=== PATIENT | female | born 1990 | race Caucasian/White ===

== ENCOUNTER 2017-02-19 02:45 | Emergency (ER) | payer BC ==
[~2017-02-19] VITALS: Ht 175.3 cm; Wt 60.0 kg
[~2017-02-19 02:45] MED LIST: CIPR500T2 PO
[2017-02-19 02:47] VITALS: BP 118/72; PULSE 65; RESP 16; TEMP 97.8; O2SAT 100
[2017-02-19] MEDS ORDERED: diphenhydrAMINE HCL ELIXIR 12.5 MG/5 ML CUP PO ONE (03:00)
[2017-02-19] MEDS ORDERED: LIDOCAINE VISCOUS 2% SOLN 15 ML UDC SWISH-SWAL ONE (03:00)
--- NOTE | 2017-02-19 04:42 | PD ---
HPI Chief Complaint: Abdominal Pain Time Seen by Provider: 02:53 Travel History International Travel<30 days: No Contact w/Intl Traveler<30days: No Traveled to known affect area: No History of Present Illness HPI Patient is a 26-year-old female and she is 10 weeks she's having epigastric pain and burning that is not relieved by Tums it is not relieved by other [id number] and antacids. She had hyperemesis gravidarum the very beginning of her but now she has only a epigastric pain. Pt denies dysuria denies any frequency denies any lower abdominal pain . she took over- the-counter antiacids which did not help relieve this epigastric pain... no change in her stool. no vomiting Pain does not radiate and is a achy burning feeling PFSH Past Medical History Arthritis: No Asthma: No Autoimmune Disease: No Blood Disorders: No Anxiety: No Heart Rhythm Problems: Yes (EPISODES OF TACHYCARDIA) Cancer: No Cardiovascular Problems: Yes (FREQUENT NOSEBLEEDS) Chemotherapy: No Chest Pain: No COPD: No Cerebrovascular Accident: No GERD: No Genitourinary: No Headaches: Yes Hepatitis: No Hiatal Hernia: No Hypertension: No Immune Disorder: No Musculoskeletal: No Neurologic: No Psychiatric: No Reproductive: No Respiratory: No Migraines: Yes (CAFFEINE) Radiation Therapy: No Seizures: No Sleep Apnea: No Ulcer: No ?: Past Surgical History Abdominal Surgery: No Appendectomy: Yes Cardiac Surgery: No Cholecystectomy: Yes Genitourinary Surgery: No Gynecologic Surgery: No Pacemaker: No Thoracic Surgery: Yes (R. BREAST) Other Surgery: Yes (RIGHT BREAST RECONSTRUCTION) Social History Alcohol Use: Yes (RARELY) Tobacco Use: No Substance Use: No Allergies-Medications (Allergen,Severity, Reaction): Coded Allergies: No Known Allergies (Verified , 01/01/17) Reported Meds & Prescriptions Reported Meds & Active Scripts Active Lidocaine Viscous Liq 2 % Liqd 5 Ml SWISH-SWAL QID PRN Pepcid (Famotidine) 20 Mg Tab 20 Mg PO BID Ciprofloxacin (Ciprofloxacin HCl) 500 Mg Tab 500 Mg PO BID Review of Systems Except as stated in HPI: all other systems reviewed are Neg Gastrointestinal: Positive: Abdominal Pain, No: Nausea, Vomiting, Diarrhea Physical Exam Narrative GENERAL: Patient is nontoxic-appearing no distress lying comfortably in the bed SKIN: Warm and dry. HEAD: Atraumatic. Normocephalic. EYES: Pupils equal and round. No scleral icterus. No injection or drainage. ENT: No nasal bleeding or discharge. Mucous membranes pink and moist. NECK: Trachea midline. No JVD. CARDIOVASCULAR: Regular rate and rhythm. RESPIRATORY: No accessory muscle use. Clear to auscultation. Breath sounds equal bilaterally. GASTROINTESTINAL: Abdomen tender epigastric there is no tenderness in the lower quadrants , nondistended. Hepatic and splenic margins not palpable. MUSCULOSKELETAL: Extremities without clubbing, cyanosis, or edema. No obvious deformities. NEUROLOGICAL: Awake and alert. No obvious cranial nerve deficits. Motor grossly within normal limits. Five out of 5 muscle strength in the arms and legs. Normal speech. PSYCHIATRIC: Appropriate mood and affect; insight and judgment normal. Data Data Last Documented VS Vital Signs Date Time Temp Pulse Resp B/P (MAP) Pulse Ox O2 Delivery O2 Flow Rate FiO2 02/19/17 05:54 02/19/17 02:47 97.8 65 16 100 Room Air Orders Orders Lidocaine 2% Viscous (Xylocaine 2% Visco (02/19/17 03:00) Diphenhydramine Liq (Benadryl Liq) (02/19/17 03:00) Ed Discharge Order (02/19/17 04:47) MDM Medical Decision Making Medical Screen Exam Complete: Yes Emergency Medical Condition: Yes Differential Diagnosis GERD vs gastritis vs hormonal stimulation of gastric secretion increase vs mechanical uterus size enlarged pressing on stomach to LES Narrative Course I given pt benadryl liquid and Viscous Lidocaine ( both class B ) in , this relieves her pain . I do POC bedside sono MMODE FHR 167 and CRL 10wks 2 days pt reassured and feels much better d/c follow up with [facility] Procedures Procedure Narrative POC bedside M-Mode and CRL 10weeks 2 days that correlates with the dates and M-mode fhr =167 Diagnosis Primary Impression: Gastritis Qualified Codes: K29.70 - Gastritis, unspecified, without bleeding Scripts Lidocaine Viscous Liq (Lidocaine Viscous Liq) 2 % Liqd 5 ML SWISH-SWAL QID Y for PAIN, #1 BOTTLE 0 Refills Prov: rPice Hardy MD 02/19/17 Famotidine (Pepcid) 20 Mg Tab 20 MG PO BID, #30 TAB 0 Refills Prov: Price Hardy MD 02/19/17 Disposition: 01 DISCHARGE HOME Price Hardy MD Feb 19, 2017 04:42
[2017-02-19] MEDS ORDERED: FAMO1TAB37 PO (04:47)
[2017-02-19] MEDS ORDERED: LIDO1SOL8 SWISH-SWAL (04:47)
== END 2017-02-19 05:55 | disposition home or self-care (01) ==
LOC: NEPC 02:45
DX: O26.891 Other specified pregnancy related conditions, first trimester (principal); K29.70 Gastritis, unspecified, without bleeding; Z3A.10 10 weeks gestation of pregnancy
CPT/HCPCS: 99284

== ENCOUNTER 2017-08-29 20:18 | Emergency (ER) | payer OTHER ==
[~2017-08-29 20:18] MED LIST changes: +FAMO1TAB37 PO; +LIDO1SOL8 SWISH-SWAL
--- NOTE | 2017-08-29 21:13 | PD ---
HPI Chief Complaint Contractions Date Seen: Aug 29, 2017 Time Seen: 21:07 Travel History International Travel<30 Days: No Contact w/Intl Traveler<30Days: No Known Affected Area: No History of Present Illness HPI 27-year-old white female at [address] Kendrick for care and presents complaining of contractions. She denies bleeding or leakage of fluid. The NST is reactive and she is gonzalez every 3-5 minutes with some discomfort but not very painful Weeks Gestation: 38 Para: 1 : 3 Miscarriage: 1 History Obstetric History Obstetric History 1 vaginal delivery 1 early loss Social History Alcohol Use: No Tobacco Use: No Substance Abuse: No Allergies-Medications (Allergen,Severity, Reaction): Coded Allergies: No Known Allergies (Verified Allergy, Severe, 01/01/17) Home Meds Active Scripts Lidocaine Viscous Liq (Lidocaine Viscous Liq) 2 % Liqd, 5 ML SWISH-SWAL QID Y for PAIN, #1 BOTTLE 0 Refills Prov:Price Hardy MD 02/19/17 Famotidine (Pepcid) 20 Mg Tab, 20 MG PO BID, #30 TAB 0 Refills Prov:Price Hardy MD 02/19/17 Ciprofloxacin (Ciprofloxacin) 500 Mg Tab, 500 MG PO BID for Infection, #10 TAB 0 Refills Prov:Rowan Valentino 01/01/17 Review of Systems General / Constitutional: No: Fever, Weight Gain, Chills, Other Eyes: No: Diploplia, Blurred Vision, Visual changes, Pain, Photophobia HENT: No: Headaches, Vertigo, Lightheadedness Cardiovascular: No: Irregular Rhythm, Chest Pain or Discomfort, Palpitations, Tachycardia, Syncope, Varicosities, Edema, Cyanosis Respiratory: No: Cough, Short of Breath, Other Gastrointestinal: No: Nausea, Vomiting, Diarrhea Genitourinary: No: Decreased Urinary Output, Oliguria Musculoskeletal: No: Limited ROM, Weakness, Cramping, Edema, Pain Skin: No Rash, No Itching, No Dryness, No Lumps, No Change in Pigmentation, No Change in Nails, No Alopecia, No Lesions Neurologic: No: Weakness, Dizziness, Syncope, Focal Abnormalities, Coordination Problem, Headache, Slurred Speech, Seizures Psychiatric: No: Depression, Suicidal Ideations, Homicidal Ideation Endocrine: No: Heat Intolerance, Cold Intolerance, Polydipsia, Polyuria, Other Physical Exam Narrative GENERAL: Well-nourished, well-developed patient. SKIN: Warm and dry. HEAD: Normocephalic and atraumatic. EYES: No scleral icterus. No injection or drainage. ENT: No nasal drainage noted. Mucous membranes pink. Airway patent. NECK: Supple, trachea midline. No JVD. CARDIOVASCULAR: Regular rate and rhythm without murmurs, gallops, or rubs. RESPIRATORY: Breath sounds equal bilaterally. No accessory muscle use. BREASTS: Bilateral exam showed no masses , no retractions, no nipple discharge. ABDOMEN/GI: Abdomen soft, non-tender, bowel sounds present, no rebound, no guarding Gravid to [38-] weeks size Fundal Height: [38-] GENITOURINARY: External Genitalia: intact and normal in appearance BUS glands: [-] Cervix: [post-] Dilatation: [3-] Effacement: [-50] Station: [-3] Presentation: [vtx-] Membranes: [intact ] Uterine Contractions: [-q3-5 min] FHT's: Category: [1-] Baseline: [133-] Reactive: [-R] Variability: [mod-] Decels: [-0] EXTREMITIES: No cyanosis or edema. BACK: Nontender without obvious deformity. No CVA tenderness. NEUROLOGICAL: Awake and alert. Motor and sensory grossly within normal limits. Five out of 5 muscle strength in all muscle groups. Normal speech. MDM Interpretation(s) 27-year-old white female at 38 weeks presents clinic contractions, cervix is unchanged from office visits 3/50/-3 and posterior and vertex, NST is reactive and she is gonzalez regularly and they have spaced out some from when she first got here and are not very painful just uncomfortable Plan Plan to discharge home due to prodromal labor versus false labor and will have her return if pains increase in frequency and intensity or bleeding or leakage occurs otherwise follow-up with Dr. Kendrick who plans to induce her in 3 days anyway Diagnosis Diagnosis: Primary Impression: False labor after 37 weeks of gestation without delivery Additional Impression: 38 weeks gestation of Disposition: DISCHARGE HOME Condition: Stable Stanley Chaparro II, MD Aug 29, 2017 21:13
[2017-08-29] MEDS ORDERED: PREN1TAB45 PO (23:49)
[2017-08-29] MEDS ORDERED: VALT500T PO (23:49)
== END 2017-08-29 21:18 | disposition home or self-care (01) ==
LOC: HOBED 20:18
DX: O47.1 False labor at or after 37 completed weeks of gestation (principal); Z3A.38 38 weeks gestation of pregnancy; Z79.899 Other long term (current) drug therapy
CPT/HCPCS: 59025

== ENCOUNTER 2017-08-29 23:24 | Inpatient (IN) | payer OTHER ==
[~2017-08-29] VITALS: Ht 175.3 cm; Wt 73.0 kg
[2017-08-29] MEDS ORDERED: PREN1TAB45 PO (23:49)
[2017-08-29] MEDS ORDERED: VALT500T PO (23:49)
[2017-08-30] VITALS (8 sets, daily range): BP systolic 101–133; BP diastolic 51–79; PULSE 62–103; RESP 17–20; TEMP 97.4–98; O2SAT 96–100
[2017-08-30] MEDS ORDERED: LACTATED RINGER'S 1000 ML INJ 1,000 ML IV PRN (00:04)
[2017-08-30] MEDS ORDERED: LACTATED RINGER'S 1000 ML INJ 1,000 ML IV SCH (00:04)
--- NOTE | 2017-08-30 00:04 | HHI.HP ---
HPI Chief Complaint Contractions and bleeding Date Seen: Aug 30, 2017 Time Seen: 23:59 Travel History International Travel<30 Days: No Contact w/Intl Traveler<30Days: No Known Affected Area: No History of Present Illness HPI Patient is 27-year-old white female 38 weeks who presents complaining of increasing contractions and bleeding. She was seen here in the OB ED at approximately 8:00 PM and has now returned approximately 4 hours later with increasing contraction pain and now bleeding which was not bleeding at all before, NST is reactive and she is gonzalez every other minute Weeks Gestation: 38 Para: 1 : 3 Miscarriage: 1 History Obstetric History Obstetric History 1 vaginal delivery 1 early loss Social History Alcohol Use: No Tobacco Use: No Substance Abuse: No Allergies-Medications (Allergen,Severity, Reaction): Coded Allergies: No Known Allergies (Verified Allergy, Severe, 08/29/17) Home Meds Active Scripts Famotidine (Pepcid) 20 Mg Tab, 20 MG PO BID, #30 TAB 0 Refills Prov:Price Hardy MD 02/19/17 Reported Medications Valacyclovir (Valtrex) 500 Mg Tab, 500 MG PO DAILY for Mgmt Viral Infection, # 30 TAB 0 Refills 08/29/17 Vit,Calc76/Iron/Folic (Pnv 29-1 Tablet) 29 Mg Iron-1 Mg Tablet, 1 TAB PO DAILY 08/29/17 Discontinued Scripts Lidocaine Viscous Liq (Lidocaine Viscous Liq) 2 % Liqd, 5 ML SWISH-SWAL QID Y for PAIN, #1 BOTTLE 0 Refills Prov:Price Hardy MD 02/19/17 Ciprofloxacin (Ciprofloxacin) 500 Mg Tab, 500 MG PO BID for Infection, #10 TAB 0 Refills Prov:Rowan Valentino 01/01/17 Review of Systems General / Constitutional: No: Fever, Weight Gain, Chills, Other Eyes: No: Diploplia, Blurred Vision, Visual changes, Pain, Photophobia HENT: No: Headaches, Vertigo, Lightheadedness Cardiovascular: No: Irregular Rhythm, Chest Pain or Discomfort, Palpitations, Tachycardia, Syncope, Varicosities, Edema, Cyanosis Respiratory: No: Cough, Short of Breath, Other Gastrointestinal: Abdominal Pain, No: Nausea, Vomiting, Diarrhea Genitourinary: Vaginal Bleeding, No: Decreased Urinary Output, Oliguria Musculoskeletal: No: Limited ROM, Weakness, Cramping, Edema, Pain Skin: No Rash, No Itching, No Dryness, No Lumps, No Change in Pigmentation, No Change in Nails, No Alopecia, No Lesions Neurologic: No: Weakness, Dizziness, Syncope, Focal Abnormalities, Coordination Problem, Headache, Slurred Speech, Seizures Psychiatric: No: Depression, Suicidal Ideations, Homicidal Ideation Endocrine: No: Heat Intolerance, Cold Intolerance, Polydipsia, Polyuria, Other Physical Exam Narrative GENERAL: Well-nourished, well-developed patient. SKIN: Warm and dry. HEAD: Normocephalic and atraumatic. EYES: No scleral icterus. No injection or drainage. ENT: No nasal drainage noted. Mucous membranes pink. Airway patent. NECK: Supple, trachea midline. No JVD. CARDIOVASCULAR: Regular rate and rhythm without murmurs, gallops, or rubs. RESPIRATORY: Breath sounds equal bilaterally. No accessory muscle use. BREASTS: Bilateral exam showed no masses , no retractions, no nipple discharge. ABDOMEN/GI: Abdomen soft, non-tender, bowel sounds present, no rebound, no guarding Gravid to [-38] weeks size Fundal Height: [-38] GENITOURINARY: External Genitalia: intact and normal in appearance BUS glands: [-] Cervix: [mid-] Dilatation: [-4-5] Effacement: [-70] Station: [-1] Presentation: [vtx-] Membranes: [intact BBOW] Uterine Contractions: [q 2 min-] FHT's: Category: [-1] Baseline: [-133] Reactive: [-R] Variability: [mod-] Decels: 0 -] EXTREMITIES: No cyanosis or edema. BACK: Nontender without obvious deformity. No CVA tenderness. NEUROLOGICAL: Awake and alert. Motor and sensory grossly within normal limits. Five out of 5 muscle strength in all muscle groups. Normal speech. Caprini VTE Risk Assessment Caprini VTE Risk Assessment: No/Low Risk (score <= 1) Caprini Risk Assessment Model Point Value = 1 Point Value = 2 Point Value = 3 Point Value = 5 Age 41-60 Minor surgery BMI > 25 kg/m2 Swollen legs Varicose veins or History of unexplained or recurrent spontaneous Oral contraceptives or hormone replacement Sepsis (< 1 month) Serious lung disease, including pneumonia (< 1 month) Abnormal pulmonary function Acute myocardial infarction Congestive heart failure (< 1 month) History of inflammatory bowel disease Medical patient at bed rest Age 61-74 Arthroscopic surgery Major open surgery (> 45 min) Laparoscopic surgery (> 45 min) Malignancy Confined to bed (> 72 hours) Immobilizing plaster cast Central venous access Age >= 75 History of VTE Family history of VTE Factor V Leiden Prothrombin [id number] Lupus anticoagulant Anticardiolipin antibodies Elevated serum homocysteine Heparin-induced thrombocytopenia Other congenital or acquired thrombophilia Stroke (< 1 month) Elective arthroplasty Hip, pelvis, or leg fracture Acute spinal cord injury (< 1 month) Prophylaxis Regimen Total Risk Factor Score Risk Level Prophylaxis Regimen 0-1 Low Early ambulation 2 Moderate Order ONE of the following: *Sequential Compression Device (SCD) *Heparin 5000 units SQ BID 3-4 Higher Order ONE of the following medications: *Heparin 5000 units SQ TID *Enoxaparin/Lovenox 40 mg SQ daily (WT < 150 kg, CrCl > 30 mL/min) *Enoxaparin/Lovenox 30 mg SQ daily (WT < 150 kg, CrCl > 10-29 mL/min) *Enoxaparin/Lovenox 30 mg SQ BID (WT < 150 kg, CrCl > 30 mL/min) AND/OR *Sequential Compression Device (SCD) 5 or more Highest Order ONE of the following medications: *Heparin 5000 units SQ TID (Preferred with Epidurals) *Enoxaparin/Lovenox 40 mg SQ daily (WT < 150 kg, CrCl > 30 mL/min) *Enoxaparin/Lovenox 30 mg SQ daily (WT < 150 kg, CrCl > 10-29 mL/min) *Enoxaparin/Lovenox 30 mg SQ BID (WT < 150 kg, CrCl > 30 mL/min) AND *Sequential Compression Device (SCD) Data Data Group B Strep: Negative Assessment/Plan Assessment and Plan Impression --38 week intrauterine active labor with definitive cervical change since she was here prior visit 4 hours ago, NST reactive, GBS negative Plan-admit to labor and delivery, manage and augment labor as needed, anticipate vaginal delivery, notify Stanley Guerra II, MD Aug 30, 2017 00:04
[2017-08-30] MEDS ORDERED: SODIUM CHLORID 0.9% 500 ML INJ 500 ML IV PRN (00:15)
[2017-08-30] MEDS ORDERED: LIDOCAINE HCL 1% 50 ML VIAL INFIL PRN (00:15)
[2017-08-30] MEDS ORDERED: LIDOCAINE HCL 1% 50 ML VIAL I-DERMAL PRN (00:15)
[2017-08-30] MEDS ORDERED: MINERAL OIL 10 ML VIAL TOPICAL PRN (00:15)
[2017-08-30] MEDS ORDERED: OXYTOCIN 30 UNITS-500ML PREMIX 500 ML IV ONE (00:15)
[2017-08-30] MEDS ORDERED: CITRIC ACID-SODIUM CITRATE LIQ 30 ML UDC PO SCH (00:15)
[2017-08-30] MEDS ORDERED: SODIUM CHLOR 0.9% 1000 ML INJ 1,000 ML IV PRN (00:24)
[2017-08-30] MEDS ORDERED: LIDOCAINE HCL 1% PF 30 ML VIAL ONE (00:43)
[2017-08-30 00:46] LABS: BASOPHIL % 0.2 % (0.0-2.0); EOSINOPHIL % 0.2 % (0.0-4.0); HEMATOCRIT 39.1 % (35.0-46.0); HEMOGLOBIN 13.3 GM/DL (11.6-15.3); LYMPH % 11.5 % (9.0-44.0); LYMPHOCYTE # 1.5 TH/MM3 (1.0-4.8); MEAN CELL VOLUME 88.5 FL (80.0-100.0); MEAN CORPUSCULAR HEMOGLOBIN 30.2 PG (27.0-34.0); MEAN CORPUSCULAR HGB CONC 34.1 % (32.0-36.0); MEAN PLATELET VOLUME 7.4 FL (7.0-11.0); MONO % 4.6 % (0.0-8.0); MONOCYTE # 0.6 TH/MM3 (0-0.9); NEUT % 83.5 % (16.0-70.0); PLATELET COUNT 196 TH/MM3 (150-450); RED BLOOD COUNT 4.42 MIL/MM3 (4.00-5.30); RED CELL DISTRIBUTION WIDTH 14.8 % (11.6-17.2); WHITE BLOOD COUNT 13.2 TH/MM3 (4.0-11.0)
[2017-08-30 00:47] LABS: BILIRUBIN, URINE NEG (NEG); BLOOD, URINE MOD (NEG); GLUCOSE,URINE NEG (NEG); KETONE, URINE 10 mg/dL (NEG); MUCUS URINE FEW /lpf (OCC); NITRITE,URINE NEG (NEG); PH, URINE 7.5 (5.0-8.5); SQUAMOUS EPITHELIAL CELL URINE 1 /hpf (0-5); URINE COLOR YELLOW (YELLW/STRAW); URINE LEUKOCYTE ESTERASE SMALL (NEG)
[2017-08-30] MEDS ORDERED: fentaNYL 2MCG-BUPIV 0.125% INJ 150 ML EPIDURAL ONE (00:53)
[2017-08-30] MEDS ORDERED: fentaNYL 2MCG-BUPIV 0.125% 150 ML EPIDURAL PRN (02:15)
[2017-08-30] MEDS ORDERED: NO SYSTEM NARCOTICS PRN (02:15)
[2017-08-30] MEDS ORDERED: ePHEDrine/NS 25 MG/5 ML SYRINGE IV PUSH PRN (02:15)
[2017-08-30] MEDS ORDERED: DO NOT ADMINISTER ANTICOAGULANTS PRN (02:15)
--- NOTE | 2017-08-30 03:12 | PD.OB.DELI ---
Weeks gestation: 38 Gest age assessed date: Aug 30, 2017 Gest age assessed time: 00:10 Pt started active labor?: Yes Active labor start date: Aug 30, 2017 Active labor start time: 00:10 Medical induction of labor?: No Artificial rupture of membrane: No Anesthesia: Epidural Episiotomy: None Vaginal Delivery: Normal, Spontaneous Presentation: Occiput anterior Nuchal Cord: None Delayed cord clamping (45 sec): Yes Infant: Male, Single Delivery date: Aug 30, 2017 Delivery time: 02:54 One Minute : 8 Five Minute : 9 Weight: 7# 6 oz Placenta: Spontaneous delivery, Intact, 3 vessel cord Laceration: Vaginal laceration, 1 deg Repair: Chromic interrupted Marcell Choi MD Aug 30, 2017 03:12
[2017-08-30] MEDS ORDERED: OXYTOCIN 30 UNITS-500ML PREMIX 500 ML IV SCH (03:15)
[2017-08-30] MEDS ORDERED: ZOLPIDEM TARTRATE 5 MG TAB PO PRN (03:15)
[2017-08-30] MEDS ORDERED: SODIUM CHLORIDE 0.9% FLUSH 10 ML FLUSH IV FLUSH PRN (03:15)
[2017-08-30] MEDS ORDERED: DOCUSATE SODIUM 50 MG/SENNA 8.6 MG TAB PO PRN (03:15)
[2017-08-30] MEDS ORDERED: ONDANSETRON ODT 4 MG TAB PO PRN (03:15)
[2017-08-30] MEDS ORDERED: WITCH HAZEL 50%/GLYCERIN 12.5% 40 PAD JAR TOPICAL PRN (03:15)
[2017-08-30] MEDS ORDERED: BENZOCAINE 20% TOPICAL SPRAY 60 ML CAN TOPICAL PRN (03:15)
[2017-08-30] MEDS ORDERED: oxyCODONE/ACETAMINOPHEN 5 MG/325 MG TAB PO PRN ×2 (03:15)
[2017-08-30] MEDS ORDERED: ALUMINUM/MAGNESIUM/SIMETH 30 ML CUP PO PRN (03:15)
[2017-08-30] MEDS: IBUPROFEN 800 MG TAB PO PRN ×3 (05:28→23:23)
[2017-08-30] MEDS: ACETAMINOPHEN 325 MG TAB PO PRN ×3 (05:28→23:23)
--- NOTE | 2017-08-30 07:20 | HHI.DCPOC ---
Discharge Care Plan Diagnosis: (1) Spontaneous vaginal delivery Report Symptoms to Your Doctor -Temperature above 100.5 degrees -Redness, of incision or excessive or foul smelling drainage -Unusual pain or calf pain -Increased vaginal bleeding -Painful or difficulty urinating -Feelings of extreme sadness or anxiety after 2 weeks Goals to Promote Your Health * To prevent worsening of your condition and complications * To maintain your health at the optimal level Directions to Meet Your Goals Take your medications as prescribed Follow your dietary instruction Follow activity as directed Ensure plenty of rest for recovery Drink fluids for hydration Keep your appointments as scheduled Take your immunizations and boosters as scheduled If your symptoms worsen call your PCP, if no PCP go to Urgent Care Center or Emergency Room Smoking is Dangerous to Your Health. Avoid second hand smoke Call the 24-hour crisis hotline for domestic abuse at Marcell Choi MD Aug 30, 2017 07:20
[2017-08-30] MEDS ORDERED: SODIUM CHLORIDE 0.9% FLUSH 10 ML FLUSH IV FLUSH SCH (09:00)
[2017-08-30] MEDS ORDERED: DIPHTH/TETANUS/ACEL PERTUSSIS (BOOSTER) 0.5 ML VIAL/PFS IM ONE (16:00)
[2017-08-30] MEDS ORDERED: MEASLES, MUMPS, RUBELLA VACCINE 0.5 ML VIAL SQ ONE (16:00)
[2017-08-31 08:00] VITALS: BP 104/69; PULSE 73; RESP 20; TEMP 98.1; O2SAT 98
--- NOTE | 2017-08-31 10:22 | HHI.OB ---
Subjective Post Day: 1 Remarks doing well Objective Vitals/I&O Vital Signs Date Time Temp Pulse Resp B/P (MAP) Pulse Ox O2 Delivery O2 Flow Rate FiO2 08/30/17 17:05 97.8 67 18 133/79 99 08/30/17 16:50 97.8 62 20 120/74 99 Objective Remarks GENERAL: Well-nourished, well-developed patient. . ABDOMEN/GI: Abdomen soft, non-tender. Fundus: Firm, non-tender at umbilicus. GENITOURINARY: Light to moderate bleeding. EXTREMITIES: No cyanosis or edema, non-tender, without signs of DVT. Medications and IVs Current Medications Medications (Trade) Dose Ordered Sig/Ruben Route Start Time Stop Time Status Last Admin (NS Flush) 2 ml BID IV FLUSH 08/30/17 09:00 (NS Flush) 2 ml UNSCH PRN IV FLUSH 08/30/17 03:15 (Tylenol) 650 mg Q4H PRN PO 08/30/17 03:15 08/30/17 23:23 (Motrin) 800 mg Q8H PRN PO 08/30/17 03:15 08/30/17 23:23 (Percocet 5-325 Mg) 1 tab Q4H PRN PO 08/30/17 03:15 (Percocet 5-325 Mg) 2 tab Q4H PRN PO 08/30/17 03:15 (Americaine 20% Top Spr) 1 spray Q4H PRN TOPICAL 08/30/17 03:15 08/30/17 05:28 (Tucks Pads) 1 applic QID PRN TOPICAL 08/30/17 03:15 08/30/17 05:28 (Mayela-Colace) 2 tab Q12H PRN PO 08/30/17 03:15 08/30/17 23:23 (Ambien) 5 mg HS PRN PO 08/30/17 03:15 (Mag-Al Plus Susp Liq) 15 ml Q8H PRN PO 08/30/17 03:15 (Zofran Odt) 4 mg Q6H PRN PO 08/30/17 03:15 Assessment/Plan Assessment and Plan dc home today Marcell Choi MD Aug 31, 2017 10:22
--- NOTE | 2017-08-31 10:29 | HHI.DS ---
Admission Date Aug 30, 2017 at 00:04 Discharge Date: Aug 31, 2017 Admitting Diagnosis Diagnosis: (1) Spontaneous vaginal delivery ICD Codes: O80 - Encounter for full-term uncomplicated delivery Delivery Date: Aug 30, 2017 Vaginal Delivery: Normal, Spontaneous : Male, Single Brief History Patient is 27-year-old white female 38 weeks who presents complaining of increasing contractions and bleeding. She was seen here in the OB ED at approximately 8:00 PM and has now returned approximately 4 hours later with increasing contraction pain and now bleeding which was not bleeding at all before, NST is reactive and she is gonzalez every other minute Hospital Course doing Well PP Pt Condition on Discharge: Good Discharge Disposition: Discharge Home Discharge Instructions Diet Instructions: As Tolerated, No Restrictions Activities You Can Perform: Pelvic Rest Activities to Avoid: Driving for 24 hrs Follow up Referrals: RECONDITIONING ASSOCIATE - 2 Weeks @ [facility] with Marcell Choi MD Continued Medications: Famotidine (Pepcid) 20 Mg Tab 20 MG PO BID, #30 TAB 0 Refills Discontinued Medications: Vit,Calc76/Iron/Folic (Pnv 29-1 Tablet) 29 Mg Iron-1 Mg Tablet 1 TAB PO DAILY Valacyclovir (Valtrex) 500 Mg Tab 500 MG PO DAILY for Mgmt Viral Infection, #30 TAB 0 Refills Marcell Choi MD Aug 31, 2017 10:29
[2017-08-31] MEDS ORDERED: OXYC1TAB63 PO (10:30)
== END 2017-08-31 11:16 | disposition home or self-care (01) | DRG 775 ==
LOC: HOBED 23:24 → H2EB 08-30 00:04 → H1EA 08-30 04:59
PROVIDERS: ADMIT Obstetrics & Gynecology; ATTEND Obstetrics & Gynecology
PROC: 10E0XZZ Delivery of Products of Conception, External Approach (ICD-10-PCS; principal; 2017-08-30)
PROC: 0HQ9XZZ Repair Perineum Skin, External Approach (ICD-10-PCS; 2017-08-30)
PROC: 00HU33Z Insertion of Infusion Device into Spinal Canal, Percutaneous Approach (ICD-10-PCS; 2017-08-30)
PROC: 3E0R3BZ Introduction of Anesthetic Agent into Spinal Canal, Percutaneous Approach (ICD-10-PCS; 2017-08-30)
DX: O70.0 First degree perineal laceration during delivery (principal); Z37.0 Single live birth; Z3A.38 38 weeks gestation of pregnancy
CPT/HCPCS: 59025; 80307; 81001; 85025; 85461; 86850; 86900; 86901; 90384; 90715; G0481; J2790; J7120